=== PATIENT | male | born 1995 | race Caucasian/White ===

== ENCOUNTER 2016-09-13 19:43 | Emergency (ER) | payer MEDICAID ==
[~2016-09-13] VITALS: Ht 175.3 cm; Wt 98.0 kg
[~2016-09-13 19:43] MED LIST: ALBUTEROL
[2016-09-13 20:30] VITALS: BP 151/97
[2016-09-13] MEDS ORDERED: TETANUS, DIPHTHERIA, PERTUSSIS VAC/PF 0.5ML (>7YR OLD) IM ONE (21:00)
[2016-09-13] MEDS ORDERED: BACITRACIN ZINC OINT UDPKT TOP ONE (21:00)
== END 2016-09-13 21:37 | disposition home or self-care (01) ==
LOC: ER 20:48
DX: S91.312A Laceration without foreign body, left foot, initial encounter (principal); J45.909 Unspecified asthma, uncomplicated; W45.0XXA Nail entering through skin, initial encounter; Y93.89 Activity, other specified; Y99.8 Other external cause status; Y92.89 Other specified places as the place of occurrence of the external cause
CPT/HCPCS: 90471; 90715; 99283

== ENCOUNTER 2017-02-04 09:04 | Emergency (ER) | payer MEDICAID ==
[~2017-02-04] VITALS: Ht 175.3 cm; Wt 98.0 kg
[2017-02-04 09:20] VITALS: BP 156/87
== END 2017-02-04 16:00 | disposition left against medical advice (07) ==
LOC: ER 14:47
DX: R10.9 Unspecified abdominal pain (principal); Z53.21 Procedure and treatment not carried out due to patient leaving prior to being seen by health care provider

== ENCOUNTER 2018-08-22 00:40 | Emergency (ER) | payer SELFPAY ==
[~2018-08-22] VITALS: Ht 167.6 cm; Wt 82.0 kg
[2018-08-22] MEDS ORDERED: LORAZEPAM 2MG/ML CPJ IV STA (01:10)
[2018-08-22] MEDS ORDERED: SODIUM CHLORIDE 0.9% 1,000 ML IV ONE ×2 (01:10→02:48)
[2018-08-22 01:34] LABS: BASOPHILS % 0.7 % (0.0-2.0); EOSINOPHILS % 4.5 % (0.0-5.0); HEMATOCRIT. 44.5 % (42.0-52.0); LYMPHOCYTES % 29.3 % (20.0-50.0); MEAN CORPUSCULAR HEMOGLOBIN 30.7 pg (28.0-32.0); MEAN CORPUSCULAR VOLUME 90.9 fL (80.0-94.0); MEAN PLATELET VOLUME 6.7 fl (7.4-10.4); MONOCYTES % 7.4 % (2.0-8.0); NEUTROPHILS % 58.1 % (40.0-76.0); PLATELET 454 x1000/uL (130-400); RED CELL DISTRIBUTION WIDTH 13.8 % (11.6-14.6)
[2018-08-22 01:40] LABS: CHLORIDE 106 mEq/L (98-107)
[2018-08-22 01:46] LABS: ETHANOL BLOOD 126 mg/dL
[2018-08-22 01:50] LABS: CREATINE KINASE 134 IU/L (39-308)
[2018-08-22 01:55] LABS: *AMPHETAMINES SCREEN URINE NEGATIVE (NEGATIVE); *BARBITURATES SCREEN URINE NEGATIVE (NEGATIVE); *BENZODIAZEPINES SCREEN URINE NEGATIVE (NEGATIVE); *COCAINE SCREEN URINE PRESUMTIVE POSITIVE (NEGATIVE)
[2018-08-22 01:56] LABS: CANNABINOID URINE SCREEN NEGATIVE (NEGATIVE); METHADONE URINE SCREEN NEGATIVE (NEGATIVE); OPIATES URINE SCREEN NEGATIVE (NEGATIVE); PHENCYCLIDINE URINE SCREEN NEGATIVE (NEGATIVE)
[2018-08-22 05:04] VITALS: BP 109/40
== END 2018-08-22 05:11 | disposition home or self-care (01) ==
LOC: ER 00:40
DX: F14.10 Cocaine abuse, uncomplicated (principal); R00.2 Palpitations; F17.200 Nicotine dependence, unspecified, uncomplicated; J45.909 Unspecified asthma, uncomplicated; Z98.890 Other specified postprocedural states; Z72.89 Other problems related to lifestyle
CPT/HCPCS: 36415; 71045; 80053; 80305; 80320; 82550; 84484; 85025; 93005; 96374; 99284; J2060; J7030; G0480

== ENCOUNTER 2018-09-21 19:46 | Emergency (ER) | payer SELFPAY ==
[~2018-09-21] VITALS: Ht 175.3 cm; Wt 103.0 kg
[2018-09-21] MEDS ORDERED: CHLORDIAZEPOXIDE 25MG CAPSULE PO ONE (21:00)
[2018-09-21] MEDS ORDERED: SODIUM CHLORIDE 0.9% 2,000 ML IV ONE (21:00)
[2018-09-21] MEDS ORDERED: LORAZEPAM 2MG/ML CPJ IV ONE (21:00)
[2018-09-21] MEDS: MORPHINE SULFATE 2 MG/ML CPJ (NOT FOR IM USE) IV ONE ×2 (21:00→22:08)
[2018-09-21 21:29] LABS: BASOPHILS % 0.5 % (0.0-2.0); EOSINOPHILS % 0.6 % (0.0-5.0); HEMATOCRIT. 46.2 % (42.0-52.0); HEMOGLOBIN. 15.2 g/dL (14.0-18.0); LYMPHOCYTES % 23.1 % (20.0-50.0); MEAN CORPUSCULAR HEMOGLOBIN 30.2 pg (28.0-32.0); MEAN CORPUSCULAR VOLUME 91.6 fL (80.0-94.0); MEAN PLATELET VOLUME 6.6 fl (7.4-10.4); MONOCYTES % 7.1 % (2.0-8.0); NEUTROPHILS % 68.7 % (40.0-76.0); PLATELET 472 x1000/uL (130-400); RED BLOOD CELL COUNT 5.05 mill/uL (4.7-6.1); RED CELL DISTRIBUTION WIDTH 13.9 % (11.6-14.6)
[2018-09-21 21:31] LABS: CHLORIDE 107 mEq/L (98-107)
[2018-09-21 21:38] LABS: ETHANOL BLOOD < 10 mg/dL
[2018-09-21 21:41] LABS: CREATINE KINASE 140 IU/L (39-308); CREATINE KINASE MB FRACTION < 1.0 ng/mL (0.5-3.6)
[2018-09-21 21:49] LABS: *AMPHETAMINES SCREEN URINE NEGATIVE (NEGATIVE); *BARBITURATES SCREEN URINE NEGATIVE (NEGATIVE); *BENZODIAZEPINES SCREEN URINE NEGATIVE (NEGATIVE); *COCAINE SCREEN URINE PRESUMTIVE POSITIVE (NEGATIVE)
[2018-09-21 21:51] LABS: CANNABINOID URINE SCREEN NEGATIVE (NEGATIVE); METHADONE URINE SCREEN NEGATIVE (NEGATIVE); OPIATES URINE SCREEN NEGATIVE (NEGATIVE); PHENCYCLIDINE URINE SCREEN NEGATIVE (NEGATIVE)
[2018-09-21] MEDS ORDERED: MORPHINE SULFATE 4 MG/ML CPJ (NOT FOR IM USE) IV SCH (22:15)
[2018-09-21] MEDS ORDERED: IOHEXOL-350 100 ML BOTTLE ONE (23:18)
[2018-09-22 09:05] VITALS: BP 129/51
== END 2018-09-22 09:10 | disposition home or self-care (01) ==
LOC: ER 19:46
DX: M54.9 Dorsalgia, unspecified (principal); F14.10 Cocaine abuse, uncomplicated; F10.10 Alcohol abuse, uncomplicated; Y90.0 Blood alcohol level of less than 20 mg/100 ml; J45.909 Unspecified asthma, uncomplicated
CPT/HCPCS: 36415; 71045; 71275; 74174; 76705; 80053; 80305; 80307; 80320; 80329; 82550; 82553; 83690; 83735; 83880; 84484; 85025; 93005; 96374; 96375; 99284; J2060; J2270; J7030; Q9967; Z7610; G0480

== ENCOUNTER 2018-10-12 13:57 | Emergency (ER) | payer SELFPAY ==
[~2018-10-12] VITALS: Ht 175.3 cm; Wt 102.0 kg
[2018-10-12] MEDS: SODIUM CHLORIDE 0.9% 1,000 ML IV ONE (19:57)
[2018-10-12 20:47] LABS: BASOPHILS % 0.6 % (0.0-2.0); EOSINOPHILS % 0.2 % (0.0-5.0); HEMATOCRIT. 46.5 % (42.0-52.0); HEMOGLOBIN. 15.8 g/dL (14.0-18.0); MEAN CORPUSCULAR HEMOGLOBIN 31.3 pg (28.0-32.0); MEAN CORPUSCULAR VOLUME 92.3 fL (80.0-94.0); MEAN PLATELET VOLUME 7.4 fl (7.4-10.4); MONOCYTES % 2.9 % (2.0-8.0); NEUTROPHILS % 76.3 % (40.0-76.0); PLATELET 401 x1000/uL (130-400); RED BLOOD CELL COUNT 5.04 mill/uL (4.7-6.1); RED CELL DISTRIBUTION WIDTH 14.5 % (11.6-14.6)
[2018-10-12 20:52] LABS: CHLORIDE 101 mEq/L (98-107)
[2018-10-13 01:34] VITALS: BP 120/72
== END 2018-10-13 01:34 | disposition home or self-care (01) ==
LOC: ER 13:57
DX: E86.0 Dehydration (principal); F14.10 Cocaine abuse, uncomplicated; F10.10 Alcohol abuse, uncomplicated; J45.909 Unspecified asthma, uncomplicated; R00.2 Palpitations; Z79.899 Other long term (current) drug therapy
CPT/HCPCS: 36415; 80048; 83880; 84484; 85025; 93005; 96360; 96361; 99284; J7030

== ENCOUNTER 2019-01-15 17:51 | Emergency (ER) | payer SELFPAY ==
[~2019-01-15] VITALS: Ht 175.3 cm; Wt 101.0 kg
[2019-01-15] MEDS ORDERED: PREDNISONE 20MG TABLET PO STA (21:05)
[2019-01-15] MEDS ORDERED: ALBUTEROL (0.083%) 2.5MG/3ML NEB HHN STA (21:05)
[2019-01-15 23:36] VITALS: BP 138/93
== END 2019-01-15 23:36 | disposition home or self-care (01) ==
LOC: ER 18:32
DX: J45.901 Unspecified asthma with (acute) exacerbation (principal); Z98.890 Other specified postprocedural states
CPT/HCPCS: 71045; 99283; J7512; J7611; Z7610

== ENCOUNTER 2019-01-21 10:38 | Emergency (ER) | payer MEDICAID ==
[~2019-01-21] VITALS: Ht 175.3 cm; Wt 102.0 kg
[2019-01-21 15:50] VITALS: BP 128/86
== END 2019-01-21 13:40 | disposition home or self-care (01) ==
LOC: ER 10:38
DX: R09.81 Nasal congestion (principal); J45.909 Unspecified asthma, uncomplicated
CPT/HCPCS: 99282

== ENCOUNTER 2019-02-07 13:26 | Emergency (ER) | payer MEDICAID ==
[~2019-02-07] VITALS: Ht 175.3 cm; Wt 102.0 kg
[2019-02-07 14:01] VITALS: BP 128/72
== END 2019-02-07 17:03 | disposition home or self-care (01) ==
LOC: ER 13:26
DX: J06.9 Acute upper respiratory infection, unspecified (principal); B34.8 Other viral infections of unspecified site; J45.909 Unspecified asthma, uncomplicated; Z79.899 Other long term (current) drug therapy
CPT/HCPCS: 99283

== ENCOUNTER 2019-06-05 14:28 | Emergency (ER) | payer MEDICAID ==
[~2019-06-05] VITALS: Ht 175.3 cm; Wt 98.5 kg
[2019-06-05] MEDS ORDERED: VISCOUS LIDOCAINE 2% 15 ML UDC MM STA (18:36)
[2019-06-05] MEDS ORDERED: KETOROLAC 30MG/ML VIAL IV STA (18:36)
[2019-06-05] MEDS ORDERED: SODIUM CHLORIDE 0.9% 1,000 ML IV ONE (18:36)
[2019-06-05 22:19] VITALS: BP 119/81
== END 2019-06-05 22:20 | disposition home or self-care (01) ==
LOC: ER 15:01
DX: B34.9 Viral infection, unspecified (principal); M79.18 Myalgia, other site; J45.909 Unspecified asthma, uncomplicated; I25.10 Atherosclerotic heart disease of native coronary artery without angina pectoris; Z98.890 Other specified postprocedural states
CPT/HCPCS: 71045; 87804; 96374; 99284; J1885; J7030

== ENCOUNTER 2019-08-10 19:14 | Emergency (ER) | payer MEDICAID ==
[~2019-08-10] VITALS: Ht 175.3 cm; Wt 98.0 kg
[2019-08-10 20:16] VITALS: BP 125/76
== END 2019-08-10 21:11 | disposition home or self-care (01) ==
LOC: ER 19:14
DX: Z04.89 Encounter for examination and observation for other specified reasons (principal); R42 Dizziness and giddiness
CPT/HCPCS: 99281

== ENCOUNTER 2019-09-02 15:00 | Emergency (ER) | payer MEDICAID ==
[~2019-09-02] VITALS: Ht 175.3 cm; Wt 96.0 kg
[2019-09-02 15:07] VITALS: BP 147/85
[2019-09-02 17:18] LABS: CHLORIDE 107 mEq/L (98-107)
== END 2019-09-02 17:52 | disposition home or self-care (01) ==
LOC: ER 15:00
DX: R42 Dizziness and giddiness (principal); J45.909 Unspecified asthma, uncomplicated; I25.10 Atherosclerotic heart disease of native coronary artery without angina pectoris
CPT/HCPCS: 36415; 80053; 93005; 99284

== ENCOUNTER 2020-01-06 10:14 | Emergency (ER) | payer MEDICAID ==
[~2020-01-06] VITALS: Ht 175.3 cm; Wt 100.0 kg
[2020-01-06] MEDS ORDERED: IPRATROPIUM BROMIDE (0.02%) 0.5MG/2.5ML NEB HHN STA (10:39)
[2020-01-06] MEDS ORDERED: ALBUTEROL (0.083%) 2.5MG/3ML NEB HHN STA (10:39)
[2020-01-06] MEDS ORDERED: PREDNISONE 20MG TABLET PO STA (10:39)
[2020-01-06 12:04] VITALS: BP 120/76
== END 2020-01-06 12:04 | disposition home or self-care (01) ==
LOC: ER 10:14
DX: J45.901 Unspecified asthma with (acute) exacerbation (principal)
CPT/HCPCS: 71045; 94640; 99283; J7512; Z7610

== ENCOUNTER 2020-06-07 10:57 | Emergency (ER) | payer MEDICAID ==
[~2020-06-07] VITALS: Ht 177.8 cm; Wt 238.0 kg
[2020-06-07] MEDS ORDERED: ALBUTEROL (0.5%) 2.5MG/0.5ML NEB HHN ONE (11:15)
[2020-06-07] MEDS ORDERED: IBUPROFEN 800MG TABLET PO ONE (11:15)
[2020-06-07] MEDS ORDERED: IBUP-2029 MT (14:00)
[2020-06-07] MEDS ORDERED: ALBU6.7H9 INH (14:00)
[2020-06-07 15:11] VITALS: BP 134/96
== END 2020-06-07 14:39 | disposition home or self-care (01) ==
LOC: ER 10:57
DX: U07.1 COVID-19 (principal); J45.901 Unspecified asthma with (acute) exacerbation; R00.0 Tachycardia, unspecified; R03.0 Elevated blood-pressure reading, without diagnosis of hypertension; Z79.51 Long term (current) use of inhaled steroids
CPT/HCPCS: 71045; 87635; 99283; 99284

== ENCOUNTER 2020-06-11 03:35 | Emergency (ER) | payer MEDICAID ==
[~2020-06-11] VITALS: Ht 172.7 cm; Wt 91.0 kg
[~2020-06-11 03:35] MED LIST changes: +ALBU6.7H9 INH; +IBUP-2029 MT
[2020-06-11 03:37] VITALS: BP 118/66
[2020-06-11] MEDS ORDERED: SODIUM CHLORIDE 0.9% 1,000 ML IV ONE (04:45)
[2020-06-14] MEDS ORDERED: DEXA4TAB PO (15:59)
[2020-06-14] MEDS ORDERED: DOXY150T9 MT (16:00)
[2020-06-14] MEDS ORDERED: CEFU500T41 MT (16:03)
[2020-06-14] MEDS ORDERED: HYDR200T35 MT (16:04)
[2020-06-29] MEDS ORDERED: FLOV44 INH (13:02)
[2020-06-29] MEDS ORDERED: DIGO125T20 MT (13:02)
[2020-06-29] MEDS ORDERED: DILT240C96 MT (13:02)
[2020-06-29] MEDS ORDERED: MED4 MT (13:02)
== END 2020-06-11 05:24 | disposition home or self-care (01) ==
LOC: ER 03:35
DX: R00.0 Tachycardia, unspecified (principal); T48.5X5A Adverse effect of other anti-common-cold drugs, initial encounter; U07.1 COVID-19; Y93.89 Activity, other specified; Y92.038 Other place in apartment as the place of occurrence of the external cause; J45.909 Unspecified asthma, uncomplicated
CPT/HCPCS: 93005; 99283; J7030

== ENCOUNTER 2020-06-30 16:12 | Emergency (ER) | payer MEDICAID ==
[~2020-06-30] VITALS: Ht 177.8 cm; Wt 80.0 kg
[~2020-06-30 16:12] MED LIST changes: -ALBUTEROL; +CEFU500T41 MT; +DEXA4TAB PO; +DIGO125T20 MT; +DILT240C96 MT; +DOXY150T9 MT; +FLOV44 INH; +HYDR200T35 MT; +MED4 MT
[2020-06-30] MEDS ORDERED: LORAZEPAM 1MG TABLET PO ONE (17:30)
[2020-06-30 18:06] LABS: BASOPHILS % 1.3 % (0.0-2.0); EOSINOPHILS % 1.5 % (0.0-5.0); HEMATOCRIT. 45.8 % (42.0-52.0); HEMOGLOBIN. 15.3 g/dL (14.0-18.0); LYMPHOCYTES % 28.1 % (20.0-50.0); MEAN CORPUSCULAR VOLUME 90.1 fL (80.0-94.0); MONOCYTES % 6.2 % (2.0-8.0); NEUTROPHILS % 62.9 % (40.0-76.0); PLATELET 619 x1000/uL (130-400); RED BLOOD CELL COUNT 5.08 mill/uL (4.7-6.1); RED CELL DISTRIBUTION WIDTH 14.1 % (11.6-14.6)
[2020-06-30 18:14] LABS: CHLORIDE 106 mEq/L (98-107)
[2020-06-30] MEDS ORDERED: IOHEXOL-350 100 ML BOTTLE ONE (21:57)
[2020-06-30 22:39] VITALS: BP 130/84
== END 2020-06-30 22:43 | disposition home or self-care (01) ==
LOC: ER 16:12
DX: U07.1 COVID-19 (principal); R00.2 Palpitations
CPT/HCPCS: 36415; 71275; 80048; 84484; 85025; 93005; 99285; Q9967

== ENCOUNTER 2020-07-01 20:56 | Emergency (ER) | payer MEDICAID ==
[~2020-07-01] VITALS: Ht 172.7 cm; Wt 95.0 kg
[2020-07-01 23:01] VITALS: BP 120/76
== END 2020-07-02 00:09 | disposition home or self-care (01) ==
LOC: ER 20:56
DX: F41.0 Panic disorder [episodic paroxysmal anxiety] (principal); Z86.16 Personal history of COVID-19; R03.0 Elevated blood-pressure reading, without diagnosis of hypertension; J45.909 Unspecified asthma, uncomplicated; Z79.899 Other long term (current) drug therapy; Z79.51 Long term (current) use of inhaled steroids
CPT/HCPCS: 93005; 99283

== ENCOUNTER 2020-07-05 15:02 | Inpatient (IN) | payer MEDICAID ==
[~2020-07-05] VITALS: Ht 175.3 cm; Wt 106.6 kg
[2020-07-05 16:30] LABS: BASOPHILS % 0.2 % (0.0-2.0); HEMOGLOBIN. 14.4 g/dL (14.0-18.0); LYMPHOCYTES % 8.6 % (20.0-50.0); MEAN CORPUSCULAR HEMOGLOBIN 29.6 pg (28.0-32.0); MEAN CORPUSCULAR VOLUME 90.5 fL (80.0-94.0); MEAN PLATELET VOLUME 7.2 fl (7.4-10.4); MONOCYTES % 4.2 % (2.0-8.0); PLATELET 393 x1000/uL (130-400); RED BLOOD CELL COUNT 4.86 mill/uL (4.7-6.1); RED CELL DISTRIBUTION WIDTH 14.7 % (11.6-14.6)
[2020-07-05 16:32] LABS: CHLORIDE 105 mEq/L (98-107)
[2020-07-05] MEDS ORDERED: SODIUM CHLORIDE 0.9% 1,000 ML IV ONE (17:00)
[2020-07-05 17:36] LABS: *AMPHETAMINES SCREEN URINE NEGATIVE (NEGATIVE); *BARBITURATES SCREEN URINE NEGATIVE (NEGATIVE); *BENZODIAZEPINES SCREEN URINE NEGATIVE (NEGATIVE); *COCAINE SCREEN URINE NEGATIVE (NEGATIVE); METHADONE URINE SCREEN NEGATIVE (NEGATIVE); OPIATES URINE SCREEN NEGATIVE (NEGATIVE)
[2020-07-05 17:37] LABS: CANNABINOID URINE SCREEN NEGATIVE (NEGATIVE); PHENCYCLIDINE URINE SCREEN NEGATIVE (NEGATIVE)
[2020-07-05] MEDS ORDERED: CEFTRIAXONE 1 G PREMIX 50 ML IV ONE (20:15)
[2020-07-05] MEDS ORDERED: LEVOFLOXACIN 500MG PREMIX 100 ML IV ONE (20:15)
[2020-07-05] MEDS ORDERED: IOHEXOL-350 100 ML BOTTLE ONE (20:27)
[2020-07-06 08:45] VITALS: BP 145/92
[2020-07-06] MEDS ORDERED: CEFTRIAXONE 1 G PREMIX 50 ML IV SCH (09:15)
[2020-07-06] MEDS ORDERED: AZITHROMYCIN 500 MG TABLET PO NR (09:15)
[2020-07-06] MEDS: ENOXAPARIN 40MG/0.4ML SYR SUBCUT SCH (09:47)
[2020-07-06] MEDS: CEFTRIAXONE 1,000 MG in DEXTROSE 5% WATER 50 ML IV SCH (11:15)
[2020-07-06 12:00] VITALS: BP 136/77
[2020-07-06 16:00] VITALS: BP 124/74
[2020-07-06 18:00] VITALS: BP 128/70
[2020-07-06 19:14] VITALS: BP 145/78
[2020-07-06 20:00] VITALS: BP 120/73
[2020-07-07] VITALS: BP 117/66
[2020-07-07 04:00] VITALS: BP 116/75
[2020-07-07 06:52] LABS: BASOPHILS % 1.2 % (0.0-2.0); EOSINOPHILS % 1.1 % (0.0-5.0); HEMATOCRIT. 40.3 % (42.0-52.0); HEMOGLOBIN. 13.7 g/dL (14.0-18.0); LYMPHOCYTES % 43.4 % (20.0-50.0); MEAN CORPUSCULAR HEMOGLOBIN 31.1 pg (28.0-32.0); MEAN CORPUSCULAR VOLUME 91.8 fL (80.0-94.0); MEAN PLATELET VOLUME 7.2 fl (7.4-10.4); MONOCYTES % 6.5 % (2.0-8.0); NEUTROPHILS % 47.8 % (40.0-76.0); PLATELET 298 x1000/uL (130-400); RED BLOOD CELL COUNT 4.39 mill/uL (4.7-6.1); RED CELL DISTRIBUTION WIDTH 14.6 % (11.6-14.6)
[2020-07-07 07:07] LABS: CHLORIDE 106 mEq/L (98-107)
[2020-07-07 08:00] VITALS: BP 127/76
[2020-07-07] MEDS: ENOXAPARIN 40MG/0.4ML SYR SUBCUT SCH (08:07)
[2020-07-07] MEDS ORDERED: AZITHROMYCIN 250 MG TABLET PO SCH (09:00)
[2020-07-07] MEDS: CEFTRIAXONE 1,000 MG in DEXTROSE 5% WATER 50 ML IV SCH (10:29)
[2020-07-07 12:00] VITALS: BP 125/86
[2020-07-07] MEDS ORDERED: LEVO500T89 MT (12:14)
[2020-07-07 15:20] VITALS: BP 127/84
== END 2020-07-07 16:18 | disposition home or self-care (01) | DRG 720 ==
LOC: ER 15:02 → MICUSO 17:55 → 8WST 07-06 08:02
PROVIDERS: ADMIT Internal Medicine; ATTEND Internal Medicine
DX: A41.89 Other specified sepsis (principal); E66.9 Obesity, unspecified; J45.909 Unspecified asthma, uncomplicated; R00.0 Tachycardia, unspecified; F19.11 Other psychoactive substance abuse, in remission; R74.01 Elevation of levels of liver transaminase levels; F10.11 Alcohol abuse, in remission; I10 Essential (primary) hypertension; Z20.822 Contact with and (suspected) exposure to COVID-19; Z68.34 Body mass index [BMI] 34.0-34.9, adult; Z79.899 Other long term (current) drug therapy; J12.82 Pneumonia due to coronavirus disease 2019; B94.8 Sequelae of other specified infectious and parasitic diseases; U07.1 COVID-19
CPT/HCPCS: 36415; 71045; 71275; 80048; 80053; 80305; 83880; 84484; 85025; 93005; 93306; 99285; J0696; J1650; J1956; J7030; J7060; Q9967; U0003

== ENCOUNTER 2020-10-09 13:40 | Emergency (ER) | payer MEDICAID ==
[~2020-10-09] VITALS: Ht 167.6 cm; Wt 89.0 kg
[~2020-10-09 13:40] MED LIST changes: -CEFU500T41 MT; -DEXA4TAB PO; -DOXY150T9 MT; -HYDR200T35 MT; +LEVO500T89 MT; -MED4 MT
[2020-10-09 14:51] LABS: BASOPHILS % 0.6 % (0.0-2.0); EOSINOPHILS % 0.7 % (0.0-5.0); HEMATOCRIT. 46.4 % (42.0-52.0); HEMOGLOBIN. 15.9 g/dL (14.0-18.0); LYMPHOCYTES % 24.8 % (20.0-50.0); MEAN CORPUSCULAR HEMOGLOBIN 30.6 pg (28.0-32.0); MEAN CORPUSCULAR VOLUME 89.5 fL (80.0-94.0); MEAN PLATELET VOLUME 6.9 fl (7.4-10.4); MONOCYTES % 7.1 % (2.0-8.0); NEUTROPHILS % 66.8 % (40.0-76.0); PLATELET 431 x1000/uL (130-400); RED BLOOD CELL COUNT 5.19 mill/uL (4.7-6.1); RED CELL DISTRIBUTION WIDTH 13.3 % (11.6-14.6)
[2020-10-09 14:54] LABS: CHLORIDE 107 mEq/L (98-107)
[2020-10-09 16:15] VITALS: BP 131/66
== END 2020-10-09 17:15 | disposition home or self-care (01) ==
LOC: ER 13:40
DX: R06.02 Shortness of breath (principal); J45.909 Unspecified asthma, uncomplicated
CPT/HCPCS: 36415; 71045; 80053; 83880; 85025; 85379; 93005; 99285

== ENCOUNTER 2021-04-23 00:39 | Emergency (ER) | payer MEDICAID ==
[~2021-04-23] VITALS: Ht 177.8 cm; Wt 110.0 kg
[2021-04-23 02:40] VITALS: BP 140/78
== END 2021-04-23 03:19 | disposition home or self-care (01) ==
LOC: ER 00:39
DX: F41.9 Anxiety disorder, unspecified (principal); J45.909 Unspecified asthma, uncomplicated; Z98.890 Other specified postprocedural states
CPT/HCPCS: 71045; 99283

== ENCOUNTER 2021-05-19 17:28 | Emergency (ER) | payer MEDICAID ==
[~2021-05-19] VITALS: Ht 175.3 cm; Wt 106.0 kg
[2021-05-19 18:15] VITALS: BP 142/92
[2021-05-19] MEDS ORDERED: IBUP-2028 MT (19:23)
== END 2021-05-19 20:15 | disposition home or self-care (01) ==
LOC: ER 17:28
DX: B34.9 Viral infection, unspecified (principal); Z20.822 Contact with and (suspected) exposure to COVID-19; J45.909 Unspecified asthma, uncomplicated; Z98.890 Other specified postprocedural states; Z79.899 Other long term (current) drug therapy
CPT/HCPCS: 71045; 99284; C9803; U0003; U0005

== ENCOUNTER 2021-05-29 13:05 | Emergency (ER) | payer MEDICAID ==
[~2021-05-29] VITALS: Ht 175.3 cm; Wt 107.0 kg
[~2021-05-29 13:05] MED LIST changes: +IBUP-2028 MT
[2021-05-29 13:17] VITALS: BP 140/99
== END 2021-05-29 17:51 | disposition home or self-care (01) ==
LOC: ER 13:05
DX: R05.8 Other specified cough (principal); U09.9 Post COVID-19 condition, unspecified; Z87.01 Personal history of pneumonia (recurrent); J45.909 Unspecified asthma, uncomplicated
CPT/HCPCS: 71045; 99283

== ENCOUNTER 2021-07-23 09:57 | Emergency (ER) | payer MEDICAID ==
[~2021-07-23] VITALS: Ht 175.3 cm; Wt 111.0 kg
[2021-07-23 11:33] VITALS: BP 115/75
== END 2021-07-23 11:36 | disposition home or self-care (01) ==
LOC: ER 09:57
DX: S29.012A Strain of muscle and tendon of back wall of thorax, initial encounter (principal); I49.9 Cardiac arrhythmia, unspecified; J45.909 Unspecified asthma, uncomplicated; Z98.890 Other specified postprocedural states; X58.XXXA Exposure to other specified factors, initial encounter; Y93.89 Activity, other specified; Y92.89 Other specified places as the place of occurrence of the external cause; Y99.8 Other external cause status
CPT/HCPCS: 71046; 93005; 99283

== ENCOUNTER 2021-08-21 09:42 | Emergency (ER) | payer MEDICAID ==
[~2021-08-21] VITALS: Ht 175.3 cm; Wt 112.0 kg
[2021-08-21 09:50] VITALS: BP 135/93
[2021-08-21] MEDS ORDERED: ACETAMINOPHEN 325MG TABLET PO ONE (10:15)
[2021-08-21] MEDS ORDERED: GUAIFENESIN 600MG ER TABLET PO ONE (10:15)
[2021-08-21] MEDS ORDERED: ACET-2708 MT (11:00)
[2021-08-21] MEDS ORDERED: GUAI600T26 MT (11:00)
[2021-08-21] MEDS ORDERED: PENI500T MT (12:23)
== END 2021-08-21 11:05 | disposition home or self-care (01) ==
LOC: ER 09:42
DX: J02.0 Streptococcal pharyngitis (principal); R03.0 Elevated blood-pressure reading, without diagnosis of hypertension
CPT/HCPCS: 87430; 99283

== ENCOUNTER 2021-11-04 14:23 | Emergency (ER) | payer MEDICAID ==
[~2021-11-04 14:23] MED LIST changes: +ACET-2708 MT; +GUAI600T26 MT; -LEVO500T89 MT; +LEVO500T90 MT; +PENI500T MT
== END 2021-11-04 15:52 | disposition left against medical advice (07) ==
LOC: ER 14:23
DX: Z53.21 Procedure and treatment not carried out due to patient leaving prior to being seen by health care provider (principal)

== ENCOUNTER 2022-08-26 12:18 | Emergency (ER) | payer MEDICAID ==
[~2022-08-26] VITALS: Ht 177.8 cm; Wt 112.0 kg
[~2022-08-26 12:18] MED LIST changes: +ALBU6.7H3 INH; -ALBU6.7H9 INH; +LEVO-65 MT; -LEVO500T90 MT
[2022-08-26 12:38] VITALS: BP 166/103
[2022-08-26] MEDS ORDERED: PREDNISONE 20MG TABLET PO ONE (19:30)
[2022-08-26] MEDS ORDERED: IPRATROPIUM/ALBUTEROL 0.5-3(2.5)MG/3ML NEB HHN ONE (19:30)
[2022-08-26] MEDS ORDERED: ALBU6.7H3 INH (19:49)
[2022-08-26] MEDS ORDERED: P50 MT (19:49)
== END 2022-08-26 20:35 | disposition home or self-care (01) ==
LOC: ER 12:18
DX: J45.901 Unspecified asthma with (acute) exacerbation (principal); Z98.890 Other specified postprocedural states
CPT/HCPCS: 71045; 94640; 99283; J7512; Z7610

== ENCOUNTER 2023-03-27 18:54 | Emergency (ER) | payer BC, MEDICAID ==
[~2023-03-27] VITALS: Ht 172.7 cm; Wt 80.0 kg
[~2023-03-27 18:54] MED LIST changes: +P50 MT
[2023-03-27 18:57] VITALS: BP 120/92; PULSE 100; RESP 18; TEMP 98.5; O2SAT 98
== END 2023-03-27 19:30 | disposition home or self-care (01) ==
LOC: ER 18:54
DX: R06.02 Shortness of breath (principal); J45.909 Unspecified asthma, uncomplicated; Z79.899 Other long term (current) drug therapy
CPT/HCPCS: 99283

== ENCOUNTER 2023-07-16 11:43 | Emergency (ER) | payer BC, MEDICAID ==
[~2023-07-16] VITALS: Ht 172.7 cm; Wt 105.0 kg
[2023-07-16 12:02] VITALS: O2SAT 99
[2023-07-16 12:57] LABS: BASOPHILS % 0.4 % (0.0-2.0); EOSINOPHILS % 1.8 % (0.0-5.0); HEMATOCRIT. 49.9 % (42.0-52.0); HEMOGLOBIN. 16.9 g/dL (14.0-18.0); LYMPHOCYTES % 23.6 % (20.0-50.0); MEAN CORPUSCULAR HEMOGLOBIN 29.9 pg (28.0-32.0); MEAN CORPUSCULAR HGB CONC 33.9 g/dL (31.0-37.0); MEAN CORPUSCULAR VOLUME 88.2 fL (80.0-94.0); MEAN PLATELET VOLUME 6.6 fl (7.4-10.4); MONOCYTES % 8.6 % (2.0-8.0); NEUTROPHILS % 65.6 % (40.0-76.0); PLATELET 397 x1000/uL (130-400); RED BLOOD CELL COUNT 5.66 mill/uL (4.7-6.1); RED CELL DISTRIBUTION WIDTH 14.6 % (11.6-14.6); WHITE BLOOD COUNT 5.7 x1000/uL (4.5-11.0)
[2023-07-16] MEDS: SODIUM CHLORIDE 0.9% 1,000 ML IV ONE (13:11)
[2023-07-16] MEDS: FAMOTIDINE 20MG/2ML VIAL IV STA (13:11)
[2023-07-16] MEDS: ONDANSETRON HCL 4MG/2ML INJ IV STA (13:11)
[2023-07-16 13:14] LABS: ALANINE AMINOTRANSFERASE 50 IU/L (10-49); ALBUMIN 4.8 g/dL (3.2-4.8); ASPARTATE AMINOTRANSFERASE 48 IU/L (<34); BILIRUBIN TOTAL 0.4 mg/dL (0.1-1.0); CALCIUM 9.4 mg/dL (8.7-10.4); CARBON DIOXIDE 27 mEq/L (21-32); CHLORIDE 106 mEq/L (98-107); CREATININE 0.9 mg/dL (0.6-1.3); GLUCOSE 91 mg/dL (70-105); POTASSIUM 4.3 mEq/L (3.5-5.1); PROTEIN TOTAL 8.3 g/dL (6.0-8.3); SODIUM 139 mEq/L (136-145); UREA NITROGEN BLOOD 13 mg/dL (9-23)
[2023-07-16 14:35] VITALS: BP 137/88; PULSE 88; RESP 18; TEMP 97.8
== END 2023-07-16 14:48 | disposition home or self-care (01) ==
LOC: ER 11:43
DX: K52.9 Noninfective gastroenteritis and colitis, unspecified (principal); A08.4 Viral intestinal infection, unspecified; J45.909 Unspecified asthma, uncomplicated; Z79.899 Other long term (current) drug therapy; Z98.890 Other specified postprocedural states
CPT/HCPCS: 99284; 96374; 71045; 96361; 96375; 80053; 85025; 36415; J3490; J2405; J7030

== ENCOUNTER 2023-08-10 22:30 | Emergency (ER) | payer BC ==
[~2023-08-10] VITALS: Ht 170.2 cm; Wt 103.0 kg
[2023-08-10 22:52] VITALS: BP 126/77; PULSE 102; RESP 18; TEMP 98.4; O2SAT 98
== END 2023-08-10 23:45 | disposition home or self-care (01) ==
LOC: ER 23:26
DX: F41.0 Panic disorder [episodic paroxysmal anxiety] (principal); J45.909 Unspecified asthma, uncomplicated; Z79.899 Other long term (current) drug therapy
CPT/HCPCS: 99281

== ENCOUNTER 2023-09-11 18:19 | Emergency (ER) | payer BC ==
[~2023-09-11] VITALS: Ht 175.3 cm; Wt 100.0 kg
[2023-09-11 18:36] VITALS: O2SAT 97
[2023-09-11 19:03] LABS: BASOPHILS % 0.6 % (0.0-2.0); HEMOGLOBIN. 15.4 g/dL (14.0-18.0); MEAN CORPUSCULAR HEMOGLOBIN 30.8 pg (28.0-32.0); MEAN CORPUSCULAR HGB CONC 33.5 g/dL (31.0-37.0); MEAN PLATELET VOLUME 6.8 fl (7.4-10.4); MONOCYTES % 4.3 % (2.0-8.0); NEUTROPHILS % 71.1 % (40.0-76.0); PLATELET 427 x1000/uL (130-400); RED BLOOD CELL COUNT 5.01 mill/uL (4.7-6.1); RED CELL DISTRIBUTION WIDTH 14.4 % (11.6-14.6); WHITE BLOOD COUNT 8.5 x1000/uL (4.5-11.0)
[2023-09-11 19:09] LABS: CHLORIDE 106 mEq/L (98-107); POTASSIUM 3.4 mEq/L (3.5-5.1); SODIUM 140 mEq/L (136-145)
[2023-09-11 19:10] LABS: CALCIUM 9.3 mg/dL (8.7-10.4); CARBON DIOXIDE 26 mEq/L (21-32)
[2023-09-11 19:15] LABS: CREATININE 0.9 mg/dL (0.6-1.3); GLUCOSE 138 mg/dL (70-105); UREA NITROGEN BLOOD 10 mg/dL (9-23)
[2023-09-11 19:16] LABS: TROPONIN I HIGH SENSITIVITY < 4 ng/L (3.0-53)
[2023-09-11 19:17] LABS: ALANINE AMINOTRANSFERASE 46 IU/L (10-49); ALBUMIN 5.1 g/dL (3.2-4.8); ASPARTATE AMINOTRANSFERASE 40 IU/L (<34); BILIRUBIN TOTAL 0.3 mg/dL (0.1-1.0); PROTEIN TOTAL 8.5 g/dL (6.0-8.3)
[2023-09-12 00:25] VITALS: BP 125/85; PULSE 77; RESP 18; TEMP 97.8
== END 2023-09-12 00:46 | disposition home or self-care (01) ==
LOC: ER 18:19
DX: R00.2 Palpitations (principal); R51.9 Headache, unspecified; J45.909 Unspecified asthma, uncomplicated
CPT/HCPCS: 36415; 71045; 80053; 84484; 85025; 85379; 99284

== ENCOUNTER 2024-05-03 12:19 | Emergency (ER) | payer MEDICAID ==
[~2024-05-03] VITALS: Ht 177.8 cm; Wt 110.0 kg
[2024-05-03 12:41] VITALS: O2SAT 98
[2024-05-03 14:17] VITALS: BP 120/93; PULSE 76; RESP 17; TEMP 36.78072; O2SAT 99
== END 2024-05-03 14:19 | disposition home or self-care (01) ==
LOC: ER 12:19
DX: R06.02 Shortness of breath (principal); R00.2 Palpitations
CPT/HCPCS: 71045; 93005; 99283

== ENCOUNTER 2024-09-16 21:52 | Emergency (ER) | payer BC, MEDICAID ==
[~2024-09-16] VITALS: Ht 177.8 cm; Wt 111.0 kg
[2024-09-16 21:58] VITALS: BP 118/82; PULSE 116; RESP 18; TEMP 36.7; O2SAT 97
[2024-09-16] MEDS ORDERED: IBUP-2029 MT (23:56)
== END 2024-09-17 00:49 | disposition home or self-care (01) ==
LOC: ER 21:52
DX: F41.9 Anxiety disorder, unspecified (principal); J45.909 Unspecified asthma, uncomplicated; Z79.899 Other long term (current) drug therapy; Z98.890 Other specified postprocedural states
CPT/HCPCS: 93005; 99283

== ENCOUNTER 2024-09-16 22:27 | Emergency (ER) | payer BC, MEDICAID ==
[2024-09-16] MEDS ORDERED: IBUP-2029 MT (23:56)
== END 2024-09-16 22:53 | disposition left against medical advice (07) ==
LOC: ER 22:27
DX: R06.02 Shortness of breath (principal); Z53.21 Procedure and treatment not carried out due to patient leaving prior to being seen by health care provider

== ENCOUNTER 2024-12-06 18:06 | Emergency (ER) | payer BC, MEDICAID ==
[~2024-12-06] VITALS: Ht 175.3 cm; Wt 73.0 kg
[~2024-12-06 18:06] MED LIST changes: +IBUP-1455 MT; -IBUP-2029 MT
[2024-12-06 18:08] VITALS: O2SAT 97
[2024-12-06 18:21] VITALS: BP 124/82; PULSE 98; RESP 22; TEMP 37; O2SAT 98
== END 2024-12-06 19:57 | disposition left against medical advice (07) ==
LOC: ER 18:06
DX: R06.02 Shortness of breath (principal); Z20.822 Contact with and (suspected) exposure to COVID-19; Z53.21 Procedure and treatment not carried out due to patient leaving prior to being seen by health care provider
CPT/HCPCS: 71045; 93005; 99283

== ENCOUNTER 2024-12-28 15:09 | Emergency (ER) | payer BC ==
[~2024-12-28] VITALS: Ht 177.8 cm; Wt 104.0 kg
[~2024-12-28 15:09] MED LIST changes: -IBUP-1455 MT; +IBUP-2029 MT
[2024-12-28 15:23] VITALS: TEMP 36.9; O2SAT 99
[2024-12-28 16:35] LABS: BASOPHILS % 0.6 % (0.0-2.0); EOSINOPHILS % 1.6 % (0.0-5.0); HEMATOCRIT. 44.4 % (42.0-52.0); HEMOGLOBIN. 15.2 g/dL (14.0-18.0); LYMPHOCYTES % 21.9 % (20.0-50.0); MEAN PLATELET VOLUME 6.8 fl (7.4-10.4); MONOCYTES % 4.6 % (2.0-8.0); NEUTROPHILS % 71.3 % (40.0-76.0); PLATELET 421 x1000/uL (130-400); RED BLOOD CELL COUNT 4.92 mill/uL (4.7-6.1); RED CELL DISTRIBUTION WIDTH 13.8 % (11.6-14.6)
[2024-12-28 16:49] LABS: CREATININE 0.9 mg/dL (0.6-1.3); UREA NITROGEN BLOOD 7 mg/dL (9-23)
[2024-12-28 16:51] LABS: ASPARTATE AMINOTRANSFERASE 43 IU/L (<34); BILIRUBIN DIRECT 0.1 mg/dL (<=3.0); BILIRUBIN TOTAL 0.5 mg/dL (0.1-1.0); PROTEIN TOTAL 7.9 g/dL (6.0-8.3)
[2024-12-28] MEDS: ONDANSETRON 4MG ODT PO ONE (17:45)
[2024-12-28] MEDS: FAMOTIDINE 20MG TABLET PO ONE (17:45)
[2024-12-28] MEDS: MAGNESIUM/ALUMINUM HYDROXIDE/SIMETHICONE 30ML UDC PO ONE (17:45)
[2024-12-28] MEDS: ACETAMINOPHEN 500MG TABLET PO ONE (17:45)
[2024-12-28 18:14] VITALS: BP 138/96; PULSE 103; RESP 18; O2SAT 100
== END 2024-12-28 18:28 | disposition home or self-care (01) ==
LOC: ER 15:09
DX: R10.13 Epigastric pain (principal); R11.2 Nausea with vomiting, unspecified; F41.9 Anxiety disorder, unspecified; Z98.890 Other specified postprocedural states; J45.909 Unspecified asthma, uncomplicated; Z79.899 Other long term (current) drug therapy; Z79.51 Long term (current) use of inhaled steroids
CPT/HCPCS: 99284; 80076; 80048; 83690; 85025; 36415; Q0162